=== PATIENT | male | born 1965 | race Caucasian/White ===

== ENCOUNTER 2016-12-15 06:55 | Day surgery (SDC) | payer BC, OTHER ==
[~2016-12-15 06:55] MED LIST: RINGERS SOLUTION,LACTATED 1,000 ML IV PRN
--- OUTSIDE RECORDS SUMMARY | 2016-12-15 06:58 | XMS REPORT | Continuity of Care Document ---
:1965 Author Organization [facility] ([facility]) Address [place] [address] Phone [phone] Care Team Providers Name Role Phone Sobeida Hutson Primary Care Provider [phone] Source Comments This disclosure is being made pursuant to the Care Everywhere program, applicable federal and state laws, and may not contain all informaitonavailable regarding this patient.[facility] ([facility]) Active Allergies and Adverse Reactions No Known Allergies Current Medications Prescription Sig. Disp. Refills Start Date End Date Status irbesartan 300 mg tablet Take 300 mg Active by mouth daily. aspirin 81 mg chewable Take 81 mg by Active tablet mouth daily. carvedilol 25 mg tablet Take 1 tablet 60 tablet 1 04/07/2016 Active (25 mg total) by mouth 2 times daily. hydroCHLOROthiazide 50 mg Take 1 tablet 30 tablet 1 04/07/2016 Active tablet (50 mg total) by mouth daily. Active Problems No known active problems Resolved Problems Problem Noted Date Resolved Date Chest pain 04/05/2016 04/06/2016 Hypertensive urgency 04/05/2016 04/07/2016 Social History Tobacco Use Types Packs/Day Years Used Date Never Smoker Smokeless Tobacco: Never Used Last Filed Vital Signs Vital Sign Reading Time Taken Blood Pressure 138/90 04/07/2016 7:31 AM CDT Pulse 68 04/07/2016 7:27 AM CDT Temperature 35.6 C (96.1 F) 04/07/2016 7:27 AM CDT Respiratory Rate 18 04/07/2016 7:27 AM CDT Height 1.854 m (6' 0.99") 04/05/2016 8:51 AM CDT Weight 96.4 kg (212 lb 8.4 oz) 04/07/2016 5:35 AM CDT Body Mass Index 28.05 04/07/2016 5:35 AM CDT Oxygen Saturation 97% 04/06/2016 7:27 PM CDT Plan of Care Health Maintenance Due Date Last Done Comments HCV Screening 1965 Hepatitis B Vaccine (1 of 3 - Primary Series) 1965 Tdap Vaccine 1974 Lipid Disorder Screening 1981 MMR Vaccine 1981 Td Vaccine 1981 Colonoscopy 06/19/2013 Prostate Cancer Screening 2013 Influenza Vaccine: Seasonal (#1) 02/09/2016 Results from Last 3 Months Not on file
[2016-12-15] MEDS ORDERED: RINGERS SOLUTION,LACTATED 1,000 ML IV ONE (07:35)
[2016-12-15] MEDS ORDERED: RINGERS SOLUTION,LACTATED 1,000 ML IV PRN (08:31)
[2016-12-15 09:29] VITALS: BP 127/78
--- NOTE | 2016-12-15 14:49 | OR ---
Operative Report - Dictated Report Narrative: OPERATIVE REPORT DATE OF OPERATION: 12/15/2016 PREOPERATIVE DIAGNOSIS: History of colon polyps POSTOPERATIVE DIAGNOSIS: Normal colonoscopy OPERATION: Colonoscopy SURGEON: Min Crowder MD ANESTHESIA: DONNIE Little CRNA INDICATIONS FOR PROCEDURE: The patient is a 51-year-old male referred by Dr. Hutson. The patient had 8-11 "polyps" removed on colonoscopy in 2013. He is currently asymptomatic. There is no family history of colon cancer. FINDINGS: Normal colonoscopy NARRATIVE OF PROCEDURE: The patient was identified in the holding area, and prior to the administration of anesthetic, a multidisciplinary timeout was observed. With the patient in the left lateral position and after the administration of intravenous sedation, the perineum was inspected. There was no evidence of pilonidal disease or skin breakdown. The external appearance of the anus was normal. Sphincter tone was good. The flexible fiberoptic colonoscope was inserted into the rectum which was insufflated with air. The rectal mucosa and submucosal vascular pattern appeared normal, the prep was seen to be complete. The scope was advanced through the sigmoid colon, up the descending colon, and around the splenic flexure where the triangular haustral architecture of the transverse colon was seen. The scope was advanced across the transverse colon, around the hepatic flexure to the cecum, where the confluence of tenia and the ileocecal valve were identified. The mucosa at this level appeared normal. The scope was then slowly withdrawn in a circular fashion so that all aspects of colonic mucosa were inspected. The colon was normal in course and caliber. The haustral architecture appeared well preserved throughout with no evidence of external compression. The mucosa and submucosal vascular pattern appeared normal, specifically there was no gross evidence to suggest colitis or inflammatory bowel disease and no AV malformations were seen. No diverticulosis was demonstrated No polyps were encountered. The scope was gradually withdrawn to the level of the rectum. As much insufflated air as possible was removed. The scope was withdrawn from the patient and the procedure terminated. The patient tolerated the anesthetic and procedure well without complication and was transferred back to the ambulatory surgery area awake and in stable condition. The patient remained stable throughout a period of postoperative observation. He denied abdominal discomfort, was able to tolerate by mouth intake, and was up without assistance. I shared the operative findings with the patient and he was given copies of the photographs which appear in the medical record. He was discharged home with instructions not to engage in hazardous activity today, but may resume normal activity tomorrow, and advance diet as tolerated. He is to continue those medications as listed in the history and physical exam. RECOMMENDATION: Colon surveillance in 10 years depending upon findings and symptoms Reviewed and electronically signed
== END 2016-12-15 06:56 | disposition home or self-care (01) ==
LOC: AMB 06:55
PROVIDERS: ATTEND Surgery
PROC: 0DJD8ZZ Inspection of Lower Intestinal Tract, Via Natural or Artificial Opening Endoscopic (ICD-10-PCS; principal; 2016-12-15 08:00)
DX: Z12.11 Encounter for screening for malignant neoplasm of colon (principal); I10 Essential (primary) hypertension; E78.5 Hyperlipidemia, unspecified; Z86.010 Personal history of colon polyps; Z68.28 Body mass index [BMI] 28.0-28.9, adult